=== PATIENT | male | born 1965 | race African-American/Black ===

== ENCOUNTER 2018-05-07 08:22 | Emergency (ER) | payer OTHER | END 2018-05-07 09:10 | disposition home or self-care (01) | LOC: ER 08:22 | DX: S39.012A Strain of muscle, fascia and tendon of lower back, initial encounter (principal); M79.604 Pain in right leg; I10 Essential (primary) hypertension; X58.XXXA Exposure to other specified factors, initial encounter; Y93.89 Activity, other specified; Y99.8 Other external cause status; Y92.89 Other specified places as the place of occurrence of the external cause | CPT/HCPCS: 99283 ==